=== PATIENT | male | born 1960 | race Caucasian/White ===

== ENCOUNTER 2024-04-03 22:10 | Emergency (ER) | payer MEDICARE, SELFPAY ==
--- NOTE | ~2024-04-03 | XR_ITS ---
XR ankle LT min 3V Ordering provider: Kirill Conteh MD History: . fall . Comparison: None. FINDINGS: BONES: Small bony fragment is seen near to the lateral malleolus suggestive of a fracture. No other f ractures seen Calcaneal spur. JOINT SPACES: The ankle mortise is normal. SOFT TISSUES: Soft tissue swelling over the lateral malleolus. IMPRESSION: Small bony fragment seen near to the lateral malleolus suggestive of a fracture. Reviewed, dictated and finalized at location A. IMPRESSION: Small bony fragment seen near to the lateral malleolus suggestive of a fracture .
--- NOTE | ~2024-04-03 | XR_ITS ---
XR foot LT min 3V Ordering provider: Kirill Conteh MD History: . fall . Comparison: None. FINDINGS: BONES: Small bony fragment seen near to the lateral malleolus suggestive of a fracture. Small bony fr agment near to the base of the distal phalanx of the left and to which may be acute or chronic fractu re. Clinical correlation advised. Calcaneus spur. JOINT SPACES: Normal. No tarsal coalition. SOFT TISSUES: Normal. IMPRESSION: Small bony fragment near to the lateral malleolus suggestive of a fracture. Small bony fragment near to the base of the distal phalanx of the little toe which may be acute or chronic fracture. Clinical correlation for tenderness advised Reviewed, dictated and finalized at location A. IMPRESSION: Small bony fragment near to the lateral malleolus suggestive of a fracture. Sma ll bony fragment near to the base of the distal phalanx of the little toe which may be acute or chronic fracture. Clinical correlation for tenderness advised
[2024-04-03 22:13] VITALS: BP 162/92; PULSE 85; RESP 15; TEMP 36.4; O2SAT 96
--- NOTE | 2024-04-03 22:50 | ED.LOWEXIN ---
HPI - Extremity Injury (Lower) General Chief Complaint: Extremity Injury, Lower Stated Complaint: Fell down steps, twisted left foot Time Seen by Provider: 04/03/24 22:31 History of Present Illness HPI Narrative: Patient is a 64-year-old male who presents to the ER after injuring his left lower extremity on Saturday (two days ago). He reports he is walking down a step and he twisted to the left which cause radiating pain. He reports since Saturday his left foot has become more swollen and he has noticed ecchymosis on his toes and on the side of his foot underneath his ankle. Patient reports he has a history of AFib, kidney transplant in 2017, and sleep apnea. He denies any chest pain, shortness a breath, other signs/symptoms of illness. Related Data Allergies Allergy/AdvReac Type Severity Reaction Status Date / Time No Known Allergies Allergy Verified 04/03/24 22:16 Review of Systems Review of Systems: All systems reviewed & are unremarkable except as noted in HPI and below Exam Narrative: GENERAL: Well appearing, well-nourished, non-toxic, in no acute distress. HEAD: Normocephalic, atraumatic. NECK: Supple. No adenopathy, no masses. RESPIRATORY: Airway patent, respirations nonlabored. Clear to auscultation bilaterally, no rales, rhonchi, wheezing. CARDIOVASCULAR: Regular rate and rhythm without murmurs, rubs, or gallops. Peripheral pulses 2+ and equal bilaterally. ABDOMINAL: Soft, nontender, nondistended, no hepatosplenomegaly. Normoactive BS. MUSCULOSKELETAL: Moves all extremities. Strength/ROM intact without gross deformities. SKIN: Warm, dry, normal color. No rashes. L foot is swollen starting above pt's ankle and continuing down through his L foot and toes. Mild ecchymosis noted on pt's 2nd and 3rd metarsal, along with lateral ankle ecchymosis. NEURO: A&O X3. Speech clear. Cranial nerves II-XII grossly intact. No ataxic movements. PSYCHIATRIC: Appropriate mood and affect. Normal interaction. Course Vital Signs Vital signs: Vital Signs Temperature 36.4 C L 04/03/24 22:13 Pulse Rate 85 04/03/24 22:13 Respiratory Rate 15 04/03/24 22:13 Blood Pressure 162/92 H 04/03/24 22:13 Pulse Oximetry 96 04/03/24 22:13 Oxygen Delivery Room Air 04/03/24 22:13 Temperature 36.4 C L 04/03/24 22:13 Pulse Rate 85 04/03/24 22:13 Respiratory Rate 15 04/03/24 22:13 Blood Pressure 162/92 H 04/03/24 22:13 Pulse Oximetry 96 04/03/24 22:13 Oxygen Delivery Room Air 04/03/24 22:13 MDM - Extremity Injury (Lower) MDM Narrative Medical decision making narrative: Patient is a 64-year-old male who presents to the ER after injuring his left lower extremity on Saturday (two days ago). He reports he is walking down a step and he twisted to the left which cause radiating pain. He reports since Saturday his left foot has become more swollen and he has noticed ecchymosis on his toes and on the side of his foot underneath his ankle. Patient reports he has a history of AFib, kidney transplant in 2017, and sleep apnea. He denies any chest pain, shortness a breath, other signs/symptoms of illness. Upon examination pt's L foot is swollen starting above pt's ankle and continuing down through his L foot and toes. Mild ecchymosis noted on pt's 2nd and 3rd metarsal, along with lateral ankle ecchymosis. He endorses mildly increased pain with flexion and extension, but extremely increased pain with metatarsus adductus and metatarsus abductus. Patient's left ankle x-ray indicates Small bony fragment near to the lateral malleolus suggestive of a fracture. Small bony fragment near to the base of the distal phalanx of the little toe which may be acute or chronic fracture. A posterior short-leg splint was placed on his left lower extremity for stabilization. Patient will be advised to follow-up with orthopedics and given narcotic pain medication to go home. Differential Diagnosis Differential diagnosi
[2024-04-04 01:23] VITALS: BP 154/92; PULSE 79; RESP 15; O2SAT 100
== END 2024-04-04 01:25 | disposition home or self-care (01) ==
PROVIDERS: Emergency Provider Registered Nurse; PCP Internal Medicine
DX: S82.62XA Displaced fracture of lateral malleolus of left fibula, initial encounter for closed fracture (principal); I48.91 Unspecified atrial fibrillation; G47.30 Sleep apnea, unspecified; Z94.0 Kidney transplant status; X50.9XXA Other and unspecified overexertion or strenuous movements or postures, initial encounter
CPT/HCPCS: 29515; 73610; 73630; 99284